=== PATIENT | male | born 2000 | race Caucasian/White ===

== ENCOUNTER 2019-09-16 16:13 | Emergency (ER) | payer OTHER ==
[~2019-09-16] VITALS: Ht 175.3 cm; Wt 111.1 kg
[2019-09-16 16:46] VITALS: BP_SYST 155
--- NOTE | 2019-09-16 19:46 | NUR ---
Pt ambulatory to [facility] for evaluation
--- NOTE | 2019-09-16 20:00 | NUR ---
PATIENT BROUGHT IN WITH MOTHER COMPLAINING OF RIGHT FACE NUMBNESS X 2 DAYS WITH SWELLING. 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 DENIES ANY PAIN. PATIENT REPORTS WAS DIAGNOSED BY [facility] FOR [place] GIVEN PRESCRIPTION OF PREDNISONE 60 MG. NO OTHER COMPLAINTS/INJURIES PER PATIENT OR NOTED. WILL CONTINUE TO MONITOR.
--- NOTE | 2019-09-16 20:12 | NUR ---
ER at bedside examining patient.
[2019-09-16 20:50] VITALS: BP_SYST 136
--- NOTE | 2019-09-16 20:50 | NUR ---
Patient given written and verbal discharge instructions and verbalizes understanding. ER MD discussed with patient the results and treatment provided. Patient in stable condition. ID arm band removed. Rx of ACYCLOVIR given. Patient educated on pain management and to follow up with PMD IN 2 DAYS. Pain Scale 0/10 Opportunity for questions provided and answered. Medication side effect fact sheet provided.
== END 2019-09-16 20:50 | disposition home or self-care (01) ==
LOC: SED 16:13
DX: G51.0 Bell's palsy (principal)
CPT/HCPCS: 99283